=== PATIENT | female | born 1975 | race Caucasian/White ===

== ENCOUNTER 2016-09-19 15:34 | Inpatient (IN) | payer OTHER ==
[~2016-09-19] VITALS: Ht 160 cm; Wt 88.1 kg
[2016-09-19 15:30] VITALS: BP 137/82; PULSE 108; TEMP 98
[~2016-09-19 15:34] MED LIST: CLON1 PO; INTU3TAB PO; OMEP20TA PO; VENL75XR PO
[2016-09-19 16:00] VITALS: BP 137/82; PULSE 108; RESP 18; TEMP 98; O2SAT 98
[2016-09-19] MEDS ORDERED: MAGNESIUM HYDROXIDE SUSP 30 ML CUP PO PRN (16:00)
[2016-09-19] MEDS: REMOVE OLD PATCH T-DERMAL SCH (16:00)
[2016-09-19] MEDS ORDERED: ALUMINUM/MAGNESIUM/SIMETH 30 ML CUP PO PRN (16:00)
[2016-09-19] MEDS ORDERED: LORazepam 2 MG/ML VIAL IM PRN (16:00)
[2016-09-19] MEDS ORDERED: ACETAMINOPHEN 325 MG TAB PO PRN (16:00)
[2016-09-19] MEDS: NICOTINE 14 MG/24 HR PATCH T-DERMAL SCH (16:00)
[2016-09-19] MEDS ORDERED: PADIMATE (CHAPSTICK) 4.5 GM TUBE TOPICAL PRN (16:30)
[2016-09-19] MEDS ORDERED: QUEtiapine FUMARATE 100 MG TAB PO SCH ×2 (21:00)
[2016-09-19] MEDS: VENLAFAXINE HCL XR 75 MG CAP PO SCH (21:30)
[2016-09-19] MEDS: DIVALPROEX SODIUM E.R. 250 MG TAB PO SCH (21:30)
[2016-09-20 05:37] VITALS: BP 123/74; PULSE 113; TEMP 97.5; O2SAT 99
[2016-09-20] MEDS: DIVALPROEX SODIUM E.R. 250 MG TAB PO SCH ×2 (08:35→21:35)
[2016-09-20] MEDS: NICOTINE 14 MG/24 HR PATCH T-DERMAL SCH (08:35)
[2016-09-20] MEDS: VENLAFAXINE HCL XR 75 MG CAP PO SCH ×2 (08:35→21:34)
[2016-09-20] MEDS: REMOVE OLD PATCH T-DERMAL SCH (08:36)
[2016-09-20] MEDS: LORazepam 1 MG TAB PO PRN (12:11)
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
[2016-09-20 12:55] LABS: AUTOMATED NEUTROPHIL # 4.6 TH/MM3 (1.8-7.7); BASOPHIL # 0.1 TH/MM3 (0-0.2); BASOPHIL % 0.8 % (0.0-2.0); HEMATOCRIT 32.5 % (35.0-46.0); LYMPH % 24.3 % (9.0-44.0); LYMPHOCYTE # 1.6 TH/MM3 (1.0-4.8); MEAN CELL VOLUME 70.4 FL (80.0-100.0); MEAN CORPUSCULAR HEMOGLOBIN 23.1 PG (27.0-34.0); MEAN CORPUSCULAR HGB CONC 32.8 % (32.0-36.0); MONO % 6.7 % (0.0-8.0); NEUT % 68.2 % (16.0-70.0); PLATELET COUNT 367 TH/MM3 (150-450); RED BLOOD COUNT 4.61 MIL/MM3 (4.00-5.30); RED CELL DISTRIBUTION WIDTH 16.2 % (11.6-17.2); WHITE BLOOD COUNT 6.8 TH/MM3 (4.0-11.0)
[2016-09-20 12:57] LABS: HEMO FLAGS AUTO DIFF
[2016-09-20 13:24] LABS: ALT (GPT) 25 U/L (10-53); ANION GAP 10 MEQ/L (5-15); AST (GOT) 17 U/L (15-37); BICARBONATE 24.6 MEQ/L (21.0-32.0); BLOOD UREA NITROGEN 11 MG/DL (7-18); CHLORIDE 105 MEQ/L (98-107); GLOMERULAR FILTRATION RATE 68 ML/MIN (>89); POTASSIUM 3.9 MEQ/L (3.5-5.1); SODIUM (NA) 140 MEQ/L (136-145)
[2016-09-20 13:46] LABS: SCAN/DIFF AUTO DIFF CONFIRMED
[2016-09-20 14:06] LABS: ALKALINE PHOSPHATASE 98 U/L (45-117); TOTAL BILIRUBIN ADULT 0.2 MG/DL (0.2-1.0)
[2016-09-20 15:57] LABS: HEMOGLOBIN A1a 1.4 %; HEMOGLOBIN Ao 84.3 %; HEMOGLOBIN F 0.9 %; HEMOGLOBIN P3 3.7 %
--- NOTE | 2016-09-20 20:06 | EKG ---
Date Performed: 09/20/2016 Time Performed: 09:46:28 PTAGE: 40 years EKG: Sinus rhythm NORMAL ECG NO PREVIOUS TRACING DOCTOR: Safia Sanchez Interpretating Date/Time 09/20/2016 20:05:38
[2016-09-20 20:35] VITALS: BP 147/83; PULSE 107; RESP 18; TEMP 97.9; O2SAT 98
[2016-09-20] MEDS: ARIPiprazole 2 MG TAB PO SCH (21:00)
[2016-09-20] MEDS: clonazePAM 1 MG TAB PO PRN (21:34)
[2016-09-20] MEDS: QUEtiapine FUMARATE 100 MG TAB PO SCH (21:35)
[2016-09-21] MEDS: REMOVE OLD PATCH T-DERMAL SCH (05:14)
[2016-09-21 06:56] VITALS: BP 131/68; PULSE 101; RESP 18; TEMP 97.8; O2SAT 99
[2016-09-21] MEDS: NICOTINE 14 MG/24 HR PATCH T-DERMAL SCH (08:38)
[2016-09-21] MEDS: VENLAFAXINE HCL XR 75 MG CAP PO SCH ×2 (08:38→21:40)
[2016-09-21] MEDS: DIVALPROEX SODIUM E.R. 250 MG TAB PO SCH ×2 (08:38→21:40)
[2016-09-21] MEDS: clonazePAM 1 MG TAB PO PRN ×2 (09:04→21:40)
[2016-09-21] MEDS: LORazepam 1 MG TAB PO PRN ×2 (10:39→19:07)
--- NOTE | 2016-09-21 14:33 | PD.CONS ---
HPI Service [facility] Hospitalists Consult Requested By Psychiatry Reason for Consult Medical Management Primary Care Physician No Primary Care Physician Diagnoses: History of Present Illness 40-year-old female with a history of benign hypertension admitted to inpatient psychiatry for severe depression. [facility] has been consulted for evaluation for medical management of patient's hypertension. Patient is well known to me and has specifically requested that I be the Hospitalist to treat her for medical condition. She Currently denies any chest pain or shortness of breath and there is no report of GI bleed. 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 SKIN: No rashes, ecchymoses or lesions. Cool and dry. HEAD: Atraumatic. Normocephalic. No temporal or scalp tenderness. EYES: Pupils equal round and reactive. Extraocular motions intact. No scleral icterus. No injection or drainage. ENT: Nose without bleeding, purulent drainage or septal hematoma. Throat without erythema, tonsillar hypertrophy or exudate. Uvula midline. Airway patent. NECK: Trachea midline. No JVD or lymphadenopathy. Supple, nontender, no meningeal signs. CARDIOVASCULAR: Regular rate and rhythm without murmurs, gallops, or rubs. RESPIRATORY: Clear to auscultation. Breath sounds equal bilaterally. No wheezes , rales, or rhonchi. GASTROINTESTINAL: Abdomen soft, non-tender, nondistended. No hepato-splenomegaly , or palpable masses. No guarding. MUSCULOSKELETAL: Extremities without clubbing, cyanosis, or edema. No joint tenderness, effusion, or edema noted. No calf tenderness. Negative Homans sign bilaterally. NEUROLOGICAL: Awake and alert. Cranial nerves II through XII intact. Motor and sensory grossly within normal limits. Five out of 5 muscle strength in all muscle groups. Normal speech. Result Diagram: 09/20/16 1200 09/20/16 1200 Assessment and Plan Problem List: (1) Benign hypertension ICD Code: I10 Status: Chronic (2) Depression, major, single episode, severe ICD Code: F32.2 Status: Acute Assessment and Plan 40-year-old female with 1-Major depression: Management per psychiatry and continue current medication 2-Hypertension: Resume propranolol 10 mg by mouth 3 times a day 3-Tobacco abuse: Continue with Nicotine patch 4-GERD: start PPI 20mg BID 5-DVT prophylaxis: Encourage ablation [facility] will sign off, reconsult PRN Code Status Full code Discussed Condition With Patient Jose Wolf MD Sep 21, 2016 14:33
--- NOTE | 2016-09-21 15:21 | HHI.PYPN ---
Subjective Remarks This physician spent 45 of 50 minutes in [id number]-sets consultation with the patient. She remains markedly depressed with suicidal thinking, extreme tearfulness, extreme anxiety, ruminations of guilt, etc. This physician also spoke to patient and father regarding medication management. Patient's mother is also a physician and is trying to give input. Although patient's mother is well-meaning, she is misdirecting care. Patient is trying to follow this physician's orders but is getting bombarded with extraneous information. Patient is indecisive and has lost her confidence. Review of Systems ROS Limitations: Clinical Condition Objective Alert: Yes Novelty: Person, Place, Date, Situation Mood: Anxious, Depressed Affect: Labile Memory Intact: Immediate, Recent, Remote Hallucinations: Other Delusions: No Delusion Type: Other Suicidal: Ideation Homicidal: Ideation (no true homicidal thinking.) Insight/Judgment Impaired Vitals/IOs Vital Signs Date Time Temp Pulse Resp B/P Pulse Ox O2 Delivery O2 Flow Rate FiO2 09/21/16 06:56 97.8 101 18 131/68 99 Intake and Output 09/20/16 09/20/16 09/21/16 08:00 16:00 00:00 Intake Total 1080 ml 960 ml 960 ml Balance 1080 ml 960 ml 960 ml Assessment & Plan Problem List: (1) Depression, major, single episode, severe ICD Code: F32.2 Assessment & Plan Estimated LOS: 4 days patient remains significantly depressed with tearfulness, very low self-esteem, feelings of extreme guilt, suicidal ideation, etc. She is verbally johana for safety. However, she is unable to concentrate and complete tasks. She is being taken off work for the next month. Her medications will continue to be adjusted including the addition of a different antidepressant, TrinTelex. Depakote dose will be increased. Hospitalist will be consulted. Justification for Cont. Inpt. Suicidal and unable to care for self. Syed Vogt MD Sep 21, 2016 15:21
[2016-09-21 21:16] VITALS: BP 130/82; PULSE 112; RESP 18; TEMP 98; O2SAT 98
[2016-09-21] MEDS: PANTOPRAZOLE SOD 20 MG DELAYED RELEASE TAB PO SCH (21:39)
[2016-09-21] MEDS: PROPRANOLOL HCL 10 MG TAB PO SCH (21:39)
[2016-09-21] MEDS: QUEtiapine FUMARATE 100 MG TAB PO SCH (21:40)
[2016-09-21] MEDS: ARIPiprazole 2 MG TAB PO SCH (21:40)
[2016-09-22] MEDS: PROPRANOLOL HCL 10 MG TAB PO SCH ×3 (04:25→21:38)
[2016-09-22 06:14] VITALS: BP 136/70; PULSE 101; RESP 18; TEMP 98; O2SAT 100
[2016-09-22] MEDS: VENLAFAXINE HCL XR 75 MG CAP PO SCH ×2 (08:08→21:39)
[2016-09-22] MEDS: DIVALPROEX SODIUM E.R. 250 MG TAB PO SCH ×2 (08:08→21:38)
[2016-09-22] MEDS: NICOTINE 14 MG/24 HR PATCH T-DERMAL SCH (08:08)
[2016-09-22] MEDS: PANTOPRAZOLE SOD 20 MG DELAYED RELEASE TAB PO SCH ×2 (08:08→21:39)
[2016-09-22] MEDS: clonazePAM 1 MG TAB PO PRN ×2 (08:12→21:39)
[2016-09-22] MEDS: REMOVE OLD PATCH T-DERMAL SCH (08:51)
[2016-09-22] MEDS: LORazepam 1 MG TAB PO PRN ×2 (10:00→14:48)
--- NOTE | 2016-09-22 14:26 | HHI.PYPN ---
Subjective Remarks Patient continues to describe depression but is less tearful today. She still remains nonfunctional when it comes to her job. This physician informed her that she continues to qualify for family medical leave. She is tolerating the Depakote well and the dose was increased to 1000 mg per day. She was also started on treatment Telex, a relatively new antidepressant. As a result, her Effexor was diminished by half. This physician and the patient discussed her symptoms of depression, her possible mixed bipolar symptoms of irritability, racing thoughts and insomnia. We also discussed this physician's recommendation that she take up to 3 months off her practice. This is due to the significant nature of her depressive symptoms. Review of Systems ROS Limitations: Clinical Condition Objective Alert: Yes Roy: Person, Place, Date, Situation Mood: Anxious, Depressed Affect: Labile Memory Intact: Immediate, Recent, Remote Hallucinations: Other Delusions: No Delusion Type: Other Suicidal: Ideation Homicidal: Ideation (no true homicidal thinking.) Insight/Judgment Mildly impaired. Vitals/IOs Vital Signs Date Time Temp Pulse Resp B/P Pulse Ox O2 Delivery O2 Flow Rate FiO2 09/22/16 06:14 98.0 101 18 136/70 100 Intake and Output 09/21/16 09/21/16 09/22/16 08:00 16:00 00:00 Intake Total 360 ml 660 ml 720 ml Balance 360 ml 660 ml 720 ml Assessment & Plan Problem List: (1) Depression, major, single episode, severe ICD Code: F32.2 Assessment & Plan Estimated LOS: 3 days this physician and the patient planned on her staying the weekend to give the medicines more of an opportunity to work. If she feels better she can be discharged on Sunday with close follow up. Justification for Cont. Inpt. Patient remains markedly depressed and would very likely decompensate at lower level of care. Syed Vogt MD Sep 22, 2016 14:26
[2016-09-22 19:57] VITALS: BP 121/80; PULSE 104; RESP 18; TEMP 98; O2SAT 97
[2016-09-22] MEDS: ARIPiprazole 2 MG TAB PO SCH (21:39)
[2016-09-22] MEDS: QUEtiapine FUMARATE 100 MG TAB PO SCH (21:39)
[2016-09-23] MEDS: PROPRANOLOL HCL 10 MG TAB PO SCH ×3 (05:58→21:46)
[2016-09-23 06:22] VITALS: BP 128/70; PULSE 90; RESP 48; TEMP 97.8; O2SAT 98
[2016-09-23] MEDS: VENLAFAXINE HCL XR 75 MG CAP PO SCH ×2 (08:54→21:42)
[2016-09-23] MEDS: PANTOPRAZOLE SOD 20 MG DELAYED RELEASE TAB PO SCH ×2 (08:54→21:41)
[2016-09-23] MEDS: DIVALPROEX SODIUM E.R. 250 MG TAB PO SCH ×2 (08:55→21:41)
[2016-09-23] MEDS: NICOTINE 14 MG/24 HR PATCH T-DERMAL SCH (08:56)
[2016-09-23] MEDS: REMOVE OLD PATCH T-DERMAL SCH (09:00)
[2016-09-23] MEDS: clonazePAM 1 MG TAB PO PRN ×2 (09:07→21:41)
--- NOTE | 2016-09-23 14:33 | HHI.PYPN ---
Subjective Remarks Patient was seen for psychiatric follow-up. She was found in her room calm, cooperative, reflexive. Patient reports feeling calmer and more relax today. She has been thinking about her future, whether if she should take some time off work or if she should come back as soon as possible and just try to get over overwhelming situations and try to deal with difficult relationship with colleagues. Patient says that hospitalization has been beneficial for her, medications are working slowly "but definitely working". She reports good appetite, fair level of energy and concentration, denies suicidal or homicidal ideation, denies visual and auditory hallucinations. Patient is oriented 3, no attention deficit, no gross cognitive impairment is observed. Compliant with medication, easy to manage in the unit, no agitation or aggressive behavior reported. Review of Systems Other No somatic complaints Objective Alert: Yes Kramer: Person, Place, Date, Situation Mood: Calm, Depressed Affect: Labile Memory Intact: Immediate, Recent, Remote Hallucinations: Other Delusions: No Delusion Type: Other Suicidal: Ideation Homicidal: Ideation (no true homicidal thinking.) Insight/Judgment Fair Vitals/IOs Vital Signs Date Time Temp Pulse Resp B/P Pulse Ox O2 Delivery O2 Flow Rate FiO2 09/23/16 06:22 97.8 90 48 128/70 98 Intake and Output 09/22/16 09/22/16 09/23/16 08:00 16:00 00:00 Intake Total 700 ml Balance 700 ml Assessment & Plan Problem List: (1) Depression, major, single episode, severe Assessment & Plan: No changes in current psychotropic regimen. Brief supportive psychotherapy provided. ICD Code: F32.2 Assessment & Plan Estimated LOS: days Justification for Cont. Inpt. Patient has an elevated risk to decompensate out of an structure environment Baljinder Gibbs MD Sep 23, 2016 14:33
[2016-09-23] MEDS: TRINTELLIX 10 MG PO SCH (15:50)
[2016-09-23 17:09] VITALS: BP 122/78; PULSE 98; RESP 18; TEMP 97.9; O2SAT 99
[2016-09-23] MEDS: IBUPROFEN 400 MG TAB PO PRN (18:18)
[2016-09-23] MEDS: LORazepam 1 MG TAB PO PRN (18:20)
[2016-09-23] MEDS: ARIPiprazole 2 MG TAB PO SCH (21:00)
[2016-09-23] MEDS: QUEtiapine FUMARATE 25 MG TAB PO SCH (21:42)
[2016-09-24] MEDS: PROPRANOLOL HCL 10 MG TAB PO SCH ×3 (06:00→21:30)
[2016-09-24 06:52] VITALS: BP 112/69; PULSE 96; RESP 18; TEMP 97.8; O2SAT 98
[2016-09-24] MEDS: PANTOPRAZOLE SOD 20 MG DELAYED RELEASE TAB PO SCH ×2 (08:28→21:30)
[2016-09-24] MEDS: VENLAFAXINE HCL XR 75 MG CAP PO SCH ×2 (08:28→21:30)
[2016-09-24] MEDS: DIVALPROEX SODIUM E.R. 250 MG TAB PO SCH ×2 (08:28→21:30)
[2016-09-24] MEDS: NICOTINE 14 MG/24 HR PATCH T-DERMAL SCH (08:29)
[2016-09-24] MEDS: TRINTELLIX 10 MG PO SCH (08:29)
[2016-09-24] MEDS: REMOVE OLD PATCH T-DERMAL SCH (08:30)
[2016-09-24] MEDS: clonazePAM 1 MG TAB PO PRN (10:20)
--- NOTE | 2016-09-24 14:15 | HHI.PYPN ---
Subjective Remarks Patient was seen today for psychiatric reevaluation, she reports better mood today, better level or energy, good appetite, good sleep at night. Patient shares that she has been thinking about her future, her situation "and I have been having some clear thoughts and ideas". Patient denies suicidal or homicidal ideation, she denies visual and auditory hallucinations.. Compliant with medications. Review of Systems Other No somatic complaints Objective Alert: Yes Renick: Person, Place, Date, Situation Mood: Calm, Depressed Affect: Labile Memory Intact: Immediate, Recent, Remote Hallucinations: Other Delusions: No Delusion Type: Other Suicidal: Ideation Homicidal: Ideation (no true homicidal thinking.) Insight/Judgment improved Vitals/IOs Vital Signs Date Time Temp Pulse Resp B/P Pulse Ox O2 Delivery O2 Flow Rate FiO2 09/24/16 06:52 97.8 96 18 112/69 98 Intake and Output 09/23/16 09/23/16 09/24/16 08:00 16:00 00:00 Intake Total 1480 ml 360 ml 840 ml Balance 1480 ml 360 ml 840 ml Assessment & Plan Problem List: (1) Depression, major, single episode, severe ICD Code: F32.2 Assessment & Plan Estimated LOS: days Justification for Cont. Inpt. Will continue current psychotropics, needs to continue psychiatric hospitalization for stabilization and safety Baljinder Gibbs MD Sep 24, 2016 14:15
[2016-09-24] MEDS: LORazepam 1 MG TAB PO PRN (16:42)
[2016-09-24] MEDS: IBUPROFEN 400 MG TAB PO PRN (18:52)
[2016-09-24 19:35] VITALS: BP 123/68; PULSE 94; RESP 18; TEMP 97.8; O2SAT 97
[2016-09-24] MEDS: QUEtiapine FUMARATE 25 MG TAB PO SCH (21:30)
[2016-09-24] MEDS: ARIPiprazole 2 MG TAB PO SCH (21:30)
[2016-09-25] MEDS: PROPRANOLOL HCL 10 MG TAB PO SCH (06:00)
[2016-09-25 06:06] VITALS: BP 125/68; PULSE 101; RESP 12; TEMP 97.9
[2016-09-25] MEDS: TRINTELLIX 10 MG PO SCH (08:31)
[2016-09-25] MEDS: PANTOPRAZOLE SOD 20 MG DELAYED RELEASE TAB PO SCH (08:32)
[2016-09-25] MEDS: VENLAFAXINE HCL XR 75 MG CAP PO SCH (08:32)
[2016-09-25] MEDS: clonazePAM 1 MG TAB PO PRN (08:32)
[2016-09-25] MEDS: NICOTINE 14 MG/24 HR PATCH T-DERMAL SCH (08:32)
[2016-09-25] MEDS: REMOVE OLD PATCH T-DERMAL SCH (08:32)
[2016-09-25] MEDS: DIVALPROEX SODIUM E.R. 250 MG TAB PO SCH (08:32)
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
[2016-09-25] MEDS ORDERED: DIVA250ER PO (10:13)
[2016-09-25] MEDS ORDERED: ABIL2TAB2 PO (10:13)
[2016-09-25] MEDS ORDERED: VENL75XR PO (10:13)
[2016-09-25] MEDS ORDERED: CLON1 PO (10:15)
[2016-09-25] MEDS ORDERED: VORT1TAB3 PO (10:15)
[2016-10-25] MEDS ORDERED: VORT1TAB3 PO (16:31)
[2016-10-25] MEDS ORDERED: ABIL2TAB2 PO (16:32)
[2016-10-25] MEDS ORDERED: LAMO100T PO (16:35)
== END 2016-09-25 11:25 | disposition home or self-care (01) | DRG 885 ==
LOC: H4EA 15:34 → EEVIPCON 15:34
PROVIDERS: ADMIT Psychiatry & Neurology Psychiatry; ATTEND Psychiatry & Neurology Psychiatry
DX: F32.2 Major depressive disorder, single episode, severe without psychotic features (principal); R45.851 Suicidal ideations; F43.10 Post-traumatic stress disorder, unspecified; I10 Essential (primary) hypertension; E66.3 Overweight; G47.00 Insomnia, unspecified; Z81.8 Family history of other mental and behavioral disorders; K21.9 Gastro-esophageal reflux disease without esophagitis; Z72.0 Tobacco use
CPT/HCPCS: 80053; 82306; 82607; 83036; 84443; 84703; 85025; 93005

== ENCOUNTER → 2017-05-07 | Outpatient (CLI) | payer OTHER ==
[~2017-05-07] MED LIST changes: -INTU3TAB PO; +LAMO100 PO; -OMEP20TA PO; +OMEP20TA93 PO; -VENL75XR PO; +VORT1TAB3 PO
[2017-05-07 13:10] LABS: AUTOMATED NEUTROPHIL # 4.2 TH/MM3 (1.8-7.7); BASOPHIL # 0.1 TH/MM3 (0-0.2); BASOPHIL % 1.2 % (0.0-2.0); EOSINOPHIL # 0.1 TH/MM3 (0-0.4); EOSINOPHIL % 1.9 % (0.0-4.0); HEMATOCRIT 30.6 % (35.0-46.0); HEMO FLAGS DIFF FINAL; LYMPHOCYTE # 1.3 TH/MM3 (1.0-4.8); MEAN CELL VOLUME 62.1 FL (80.0-100.0); MEAN CORPUSCULAR HEMOGLOBIN 18.8 PG (27.0-34.0); MEAN CORPUSCULAR HGB CONC 30.3 % (32.0-36.0); MONO % 6.6 % (0.0-8.0); NEUT % 69.3 % (16.0-70.0); PLATELET COUNT 421 TH/MM3 (150-450); RED BLOOD COUNT 4.93 MIL/MM3 (4.00-5.30); RED CELL DISTRIBUTION WIDTH 19.5 % (11.6-17.2); WHITE BLOOD COUNT 6.1 TH/MM3 (4.0-11.0)
[2017-05-07 13:37] LABS: ANION GAP 5 MEQ/L (5-15); AST (GOT) 12 U/L (15-37); BLOOD UREA NITROGEN 13 MG/DL (7-18); CHLORIDE 105 MEQ/L (98-107); GLOMERULAR FILTRATION RATE 65 ML/MIN (>89); GLUCOSE,FASTING 84 MG/DL (74-99); SODIUM (NA) 139 MEQ/L (136-145)
[2017-05-07 13:46] LABS: ALKALINE PHOSPHATASE 108 U/L (45-117); ALT (GPT) 24 U/L (10-53); HDL CHOLESTEROL 40.7 MG/DL (40.0-60.0); LDL CHOLESTEROL 104 MG/DL (0-99); TOTAL BILIRUBIN ADULT 0.3 MG/DL (0.2-1.0)
[2017-05-07 16:51] LABS: HEMOGLOBIN A1a 1.4 %; HEMOGLOBIN Ao 84.1 %; HEMOGLOBIN F 0.9 %; HEMOGLOBIN LA1C 2.1 %; HEMOGLOBIN P3 3.7 %
== END ==
LOC: PLAB 08:39
PROVIDERS: ATTEND Family Medicine
DX: K21.0 Gastro-esophageal reflux disease with esophagitis (principal); F32.4 Major depressive disorder, single episode, in partial remission; Z68.35 Body mass index [BMI] 35.0-35.9, adult; Z13.1 Encounter for screening for diabetes mellitus; Z72.0 Tobacco use
CPT/HCPCS: 36415; 80053; 80061; 83036; 84439; 84443; 85025